=== PATIENT | male | born 1960 | race Caucasian/White ===

== ENCOUNTER 2020-08-04 08:14 | Outpatient (REF) | payer OTHER, SELFPAY ==
[2020-08-04 11:33] LABS: Estimated Average Glucose 126 mg/dL
[2020-08-04 12:19] LABS: Alanine Aminotransferase 14 U/L (0-40); Albumin Level 4.5 g/dL (3.5-5.0); Alkaline Phosphatase 48 U/L (39-117); Anion Gap 17 (12-20); Aspartate Amino Transferase 15 U/L (5-37); Bilirubin Total 0.7 mg/dL (0.0-1.0); Blood Urea Nitrogen 12 mg/dL (9-16); Calcium 9.1 mg/dL (8.4-10.2); Carbon Dioxide 26 mmol/L (22-29); Chloride 102 mmol/L (96-108); Cholesterol 164 mg/dL; Estimated Glomerular Filt Rate > 60; Glucose Fasting 94 mg/dL (60-99); HDL Cholesterol 49 mg/dL; LDL Cholesterol Calculated 100 mg/dl; Potassium 4.5 mmol/l (3.3-5.1); Sodium 140 mmol/L (135-145); Total Protein 7.3 g/dL (6.5-8.0); Triglycerides 76 mg/dL
== END 2020-08-04 08:15 | disposition home or self-care (01) ==
LOC: HO.MANLR 08:14
PROVIDERS: PCP Internal Medicine; Visit Provider Internal Medicine
DX: E11.9 Type 2 diabetes mellitus without complications (principal)
CPT/HCPCS: 80053; 80061; 83036

== ENCOUNTER 2020-12-01 08:15 | Outpatient (REF) | payer OTHER, SELFPAY ==
[2020-12-01 11:56] LABS: Hematocrit 48.7 % (42-52); Hemoglobin 15.9 g/dl (14.0-18.0); Mean Corpuscular HGB Conc 32.6 g/dl (31.0-36.0); Mean Corpuscular Hemoglobin 28.6 pg (27.0-33.0); Mean Corpuscular Volume 87.6 fL (80-98); Mean Platelet Volume 10.6 fL (9.4-12.4); Platelet Count 302 X10*3/uL (160-400); Red Blood Count 5.56 X10*6/uL (4.60-5.80); Red Cell Distribution Width 13.7 % (11.0-16.0); White Blood Count 11.6 X10*3/uL (4.8-10.8)
[2020-12-01 12:05] LABS: Estimated Average Glucose 108 mg/dL; Hemoglobin A1c % 5.4 %
[2020-12-01 12:47] LABS: Alanine Aminotransferase 11 U/L (0-40); Albumin Level 4.7 g/dL (3.5-5.0); Alkaline Phosphatase 57 U/L (39-117); Anion Gap 13 (12-20); Aspartate Amino Transferase 14 U/L (5-37); Bilirubin Total 0.5 mg/dL (0.0-1.0); Blood Urea Nitrogen 14 mg/dL (9-16); Calcium 10.1 mg/dL (8.4-10.2); Carbon Dioxide 32 mmol/L (22-29); Chloride 100 mmol/L (96-108); Estimated Glomerular Filt Rate > 60; Glucose Fasting 91 mg/dL (60-99); Potassium 4.8 mmol/L (3.3-5.1); Sodium 140 mmol/L (135-145); Total Protein 7.7 g/dL (6.5-8.0)
[2020-12-01 13:02] LABS: Prostate Specific Antigen 0.33 ng/mL (<0.05-4.0)
[2020-12-04 04:08] LABS: ~HepC Num1 0.14 S/CO (0.00-0.79); ~Hepatitis C Antibody Nonreactive (Nonreactive)
== END 2020-12-01 08:16 | disposition home or self-care (01) ==
LOC: HO.MANLDS 08:15
PROVIDERS: PCP Internal Medicine; Visit Provider Internal Medicine
DX: E11.9 Type 2 diabetes mellitus without complications (principal); I10 Essential (primary) hypertension; Z11.59 Encounter for screening for other viral diseases; Z12.5 Encounter for screening for malignant neoplasm of prostate
CPT/HCPCS: 36415; 80053; 83036; 84153; 85027; 86803

== ENCOUNTER 2021-02-27 13:58 | Outpatient (REF) | payer OTHER, SELFPAY ==
[2021-02-27 18:07] LABS: Estimated Average Glucose 117 mg/dL; Hemoglobin A1C 145.4185 umol/L; Hemoglobin A1c % 5.7 %
== END 2021-02-27 13:59 | disposition home or self-care (01) ==
LOC: HO.MANLDS 13:58
PROVIDERS: Visit Provider Internal Medicine
DX: E11.9 Type 2 diabetes mellitus without complications (principal)
CPT/HCPCS: 36415; 83036

== ENCOUNTER 2021-06-08 13:40 | Outpatient (REF) | payer OTHER, SELFPAY ==
[2021-06-08 18:54] LABS: Estimated Average Glucose 120 mg/dL; Hemoglobin A1c % 5.8 %
[2021-06-08 18:56] LABS: Alanine Aminotransferase 15 U/L (0-40); Albumin Level 4.5 g/dL (3.5-5.0); Alkaline Phosphatase 51 U/L (39-117); Anion Gap 14 (12-20); Aspartate Amino Transferase 17 U/L (5-37); Bilirubin Total 0.8 mg/dL (0.0-1.0); Blood Urea Nitrogen 12 mg/dL (9-16); Calcium 9.6 mg/dL (8.4-10.2); Carbon Dioxide 22 mmol/L (22-29); Chloride 104 mmol/L (96-108); Cholesterol 166 mg/dL; Estimated Glomerular Filt Rate > 60; Glucose Fasting 68 mg/dL (60-99); HDL Cholesterol 46 mg/dL; LDL Cholesterol Calculated 108 mg/dl; Sodium 136 mmol/L (135-145); Total Protein 7.3 g/dL (6.5-8.0); Triglycerides 62 mg/dL
== END 2021-06-08 13:41 | disposition home or self-care (01) ==
LOC: HO.MANLDS 13:40
PROVIDERS: Visit Provider Internal Medicine
DX: E11.9 Type 2 diabetes mellitus without complications (principal)
CPT/HCPCS: 36415; 80053; 80061; 83036

== ENCOUNTER 2021-08-15 11:15 | Outpatient (REF) | payer BC, SELFPAY ==
[2021-08-15 13:11] LABS: Estimated Average Glucose 126 mg/dL
== END 2021-08-15 11:16 | disposition home or self-care (01) ==
LOC: HO.MANLDS 11:15
PROVIDERS: PCP Internal Medicine; Visit Provider Internal Medicine
DX: E11.9 Type 2 diabetes mellitus without complications (principal)
CPT/HCPCS: 36415; 83036

== ENCOUNTER → 2021-10-17 10:10 | Outpatient (BNVA) | payer OTHER, SELFPAY | PROVIDERS: PCP Internal Medicine; Visit Provider Physician Assistant | DX: S30.0XXA Contusion of lower back and pelvis, initial encounter (principal); V85.4XXA Person injured while boarding or alighting from special construction vehicle, initial encounter | CPT/HCPCS: 99203 ==

== ENCOUNTER 2021-11-16 13:59 | Outpatient (REF) | payer BC, SELFPAY ==
[2021-11-16 18:14] LABS: Alanine Aminotransferase 12 U/L (0-40); Albumin Level 4.6 g/dL (3.5-5.0); Alkaline Phosphatase 54 U/L (39-117); Anion Gap 13 (12-20); Aspartate Amino Transferase 15 U/L (5-37); Bilirubin Total 0.4 mg/dL (0.0-1.0); Blood Urea Nitrogen 14 mg/dL (9-16); Carbon Dioxide 26 mmol/L (22-29); Chloride 101 mmol/L (96-108); Cholesterol 185 mg/dL; Estimated Glomerular Filt Rate > 60; Glucose Fasting 73 mg/dL (60-99); HDL Cholesterol 45 mg/dL; LDL Cholesterol Calculated 115 mg/dl; Potassium 4.1 mmol/L (3.3-5.1); Sodium 136 mmol/L (135-145); Total Protein 7.6 g/dL (6.5-8.0); Triglycerides 129 mg/dL
[2021-11-16 18:18] LABS: Estimated Average Glucose 137 mg/dL; Hemoglobin A1c % 6.4 %
== END 2021-11-16 14:00 | disposition home or self-care (01) ==
LOC: HO.MANLDS 13:59
PROVIDERS: PCP Internal Medicine; Visit Provider Internal Medicine
DX: E11.9 Type 2 diabetes mellitus without complications (principal)
CPT/HCPCS: 36415; 80053; 80061; 83036

== ENCOUNTER 2022-04-01 14:48 | Outpatient (REF) | payer BC, SELFPAY ==
[2022-04-01 17:52] LABS: Estimated Average Glucose 146 mg/dL; Hemoglobin A1c % 6.7 %
[2022-04-01 17:57] LABS: Alanine Aminotransferase 15 U/L (0-40); Albumin Level 4.7 g/dL (3.5-5.0); Alkaline Phosphatase 53 U/L (39-117); Anion Gap 13 (12-20); Aspartate Amino Transferase 13 U/L (5-37); Bilirubin Total 0.4 mg/dL (0.0-1.0); Blood Urea Nitrogen 14 mg/dL (9-16); Calcium 9.7 mg/dL (8.4-10.2); Carbon Dioxide 27 mmol/L (22-29); Chloride 103 mmol/L (96-108); Cholesterol 186 mg/dL; Estimated Glomerular Filt Rate > 60; Glucose Random 88 mg/dL (60-115); HDL Cholesterol 42 mg/dL; LDL Cholesterol Calculated 116 mg/dl; Sodium 139 mmol/L (135-145); Total Protein 7.6 g/dL (6.5-8.0); Triglycerides 143 mg/dL
[2022-04-01 18:01] LABS: Creatinine Urine 58.65 mg/dL; Microalbum/Creatinine Ratio Ur 78.4 ug/mg cr
== END 2022-04-01 14:49 | disposition home or self-care (01) ==
LOC: HO.MANLDS 14:48
PROVIDERS: Visit Provider Internal Medicine
DX: E11.9 Type 2 diabetes mellitus without complications (principal)
CPT/HCPCS: 36415; 80053; 80061; 82043; 83036

== ENCOUNTER 2022-07-03 14:27 | Outpatient (REF) | payer BC, SELFPAY ==
[2022-07-04 07:50] LABS: Estimated Average Glucose 148 mg/dL; Hemoglobin A1c % 6.8 %
== END 2022-07-03 14:28 | disposition home or self-care (01) ==
LOC: HO.MANLDS 14:27
PROVIDERS: Visit Provider Internal Medicine
DX: E11.9 Type 2 diabetes mellitus without complications (principal)
CPT/HCPCS: 36415; 83036

== ENCOUNTER 2022-11-25 10:24 | Outpatient (REF) | payer BC, SELFPAY ==
[2022-11-25 14:17] LABS: Estimated Average Glucose 160 mg/dL; Hemoglobin A1c % 7.2 %
[2022-11-25 14:28] LABS: Alanine Aminotransferase 12 U/L (0-40); Albumin Level 4.7 g/dL (3.5-5.0); Alkaline Phosphatase 56 U/L (39-117); Anion Gap 13 (12-20); Aspartate Amino Transferase 12 U/L (5-37); Bilirubin Total 0.6 mg/dL (0.0-1.0); Blood Urea Nitrogen 17 mg/dL (9-16); Carbon Dioxide 30 mmol/L (22-29); Chloride 101 mmol/L (96-108); Cholesterol 215 mg/dL; Estimated Glomerular Filt Rate > 60; Glucose Fasting 187 mg/dL (60-99); HDL Cholesterol 51 mg/dL; LDL Cholesterol Calculated 134 mg/dl; Sodium 139 mmol/L (135-145); Total Protein 7.9 g/dL (6.5-8.0); Triglycerides 154 mg/dL
[2022-11-27 12:44] LABS: Creatinine Urine 48.28 mg/dL; Microalbum/Creatinine Ratio Ur 289.9 ug/mg cr
== END 2022-11-25 10:25 | disposition home or self-care (01) ==
LOC: HO.MANLDS 10:24
PROVIDERS: Visit Provider Internal Medicine
DX: E11.9 Type 2 diabetes mellitus without complications (principal)
CPT/HCPCS: 36415; 80053; 80061; 82043; 83036

== ENCOUNTER 2023-02-14 14:39 | Outpatient (REF) | payer BC, SELFPAY ==
[2023-02-14 18:59] LABS: Estimated Average Glucose 131 mg/dL; Hemoglobin A1c % 6.2 %
[2023-02-14 19:00] LABS: Alanine Aminotransferase 14 U/L (0-40); Albumin Level 4.4 g/dL (3.5-5.0); Alkaline Phosphatase 45 U/L (39-117); Anion Gap 11 (12-20); Aspartate Amino Transferase 13 U/L (5-37); Bilirubin Total 0.7 mg/dL (0.0-1.0); Blood Urea Nitrogen 15 mg/dL (9-16); Calcium 9.9 mg/dL (8.4-10.2); Carbon Dioxide 26 mmol/L (22-29); Chloride 107 mmol/L (96-108); Cholesterol 160 mg/dL; Estimated Glomerular Filt Rate > 60; Glucose Random 76 mg/dL (60-115); HDL Cholesterol 44 mg/dL; LDL Cholesterol Calculated 99 mg/dl; Potassium 4.2 mmol/L (3.3-5.1); Sodium 140 mmol/L (135-145); Total Protein 7.3 g/dL (6.5-8.0); Triglycerides 86 mg/dL
== END 2023-02-14 14:40 | disposition home or self-care (01) ==
LOC: HO.MANLDS 14:39
PROVIDERS: Visit Provider Internal Medicine
DX: E11.9 Type 2 diabetes mellitus without complications (principal)
CPT/HCPCS: 36415; 80053; 80061; 83036

== ENCOUNTER 2023-05-26 15:22 | Outpatient (REF) | payer BC, SELFPAY ==
[2023-05-27 05:18] LABS: Estimated Average Glucose 114 mg/dL; Hemoglobin A1c % 5.6 % (<6.0)
== END 2023-05-26 15:23 | disposition home or self-care (01) ==
LOC: HO.MANLDS 15:22
PROVIDERS: Visit Provider Internal Medicine
DX: E11.9 Type 2 diabetes mellitus without complications (principal)
CPT/HCPCS: 36415; 83036

== ENCOUNTER 2023-09-24 14:47 | Outpatient (REF) | payer BC, SELFPAY ==
[2023-09-24 15:46] LABS: Estimated Average Glucose 114 mg/dL; Hemoglobin A1c % 5.6 % (<6.0)
== END 2023-09-24 14:48 | disposition home or self-care (01) ==
LOC: HO.LAB 14:47
PROVIDERS: PCP Internal Medicine; Visit Provider Internal Medicine
DX: E11.9 Type 2 diabetes mellitus without complications (principal)
CPT/HCPCS: 36415; 83036

== ENCOUNTER 2024-01-26 15:36 | Outpatient (REF) | payer BC, SELFPAY ==
[2024-01-26 17:47] LABS: Estimated Average Glucose 126 mg/dL
== END 2024-01-26 15:37 | disposition home or self-care (01) ==
LOC: HO.MANLDS 15:36
PROVIDERS: Visit Provider Internal Medicine
DX: E11.9 Type 2 diabetes mellitus without complications (principal)
CPT/HCPCS: 36415; 83036

== ENCOUNTER 2024-04-26 15:29 | Outpatient (REF) | payer BC, SELFPAY ==
[2024-04-26 18:37] LABS: Thyroid Stimulating Hormone 1.24 uIU/mL (0.32-4.0)
[2024-04-26 18:38] LABS: Vitamin B12 398 pg/mL (200-900)
[2024-04-27 09:38] LABS: Ceruloplasmin 25 mg/dL (14-30)
== END 2024-04-26 15:30 | disposition home or self-care (01) ==
LOC: HO.MANLDS 15:29
PROVIDERS: PCP Internal Medicine; Visit Provider Internal Medicine
DX: R25.1 Tremor, unspecified (principal)
CPT/HCPCS: 36415; 82390; 82607; 84443

== ENCOUNTER → 2024-10-19 09:11 | Outpatient (BNVA) | payer OTHER, SELFPAY | PROVIDERS: PCP Internal Medicine; Visit Provider Registered Nurse | DX: S20.211A Contusion of right front wall of thorax, initial encounter (principal); S40.011A Contusion of right shoulder, initial encounter; V84.4XXA Person injured while boarding or alighting from special agricultural vehicle, initial encounter | CPT/HCPCS: 71100; 73030; 99204 ==

== ENCOUNTER 2024-12-15 16:07 | Outpatient (REF) | payer OTHER, SELFPAY ==
--- OUTSIDE RECORDS SUMMARY | 2024-12-15 17:59 | XMS_ITS | Data Portability ---
Author Organization [facility] Address [address] [place] [address] Assessment Encounter Date Assessment Date Assessment LastModified by Organization Details LastModified Time 06/03/2023 06/03/2023 [id number] [place] [id number] ([employer]) [facility] MODERATE MUST MEET 2 OUT OF 3 ELEMENTS: PROBLEMS, DATA OR RISK ELEMENT 1: PROBLEMS ADDRESSED 1 OR MORE CHRONIC ILLNESS WITH EXACERBATION OR 2 OR MORE STABLE CHRONIC ILLNESSES OR 1 UNDIAGNOSED NEW PROBLEM OR 1 ACUTE ILLNESS W/SYMPTOMS OR 1 ACUTE COMPLICATED INJURY ELEMENT 2: DATA MUST MEET 1 OF 3 CATEGORIES CATEGORY 1: REVIEW OF PRIOR EXTERNAL NOTES, REVIEW OF RESULTS, ORDERING OF EACH TEST, ASSESSMENT REQUIRING INDEPENDENT HISTORIAN OR CATEGORY 2: INDEPENDENT INTERPRETATION OF TESTS BY ANOTHER PHYSICIAN OR SPECIALIST OR CATEGORY 3: DISCUSSION OF MGT OR TEST INTERPRETATION W/EXTERNAL PHYSICIAN OR SPECIALIST ELEMENT 3: RISK RISK OF COMPLICATIONS AND/OR MORBIDITY OR MORTALITY OF PATIENT MANAGEMENT PROVIDER MUST THOROUGHLY DOCUMENT EACH ELEMENT THAT IS COVERED Not available 06/03/2023 16:23:18 10/03/2023 10/03/2023 [id number] [place] [id number] ([employer]) [facility] MODERATE MUST MEET 2 OUT OF 3 ELEMENTS: PROBLEMS, DATA OR RISK ELEMENT 1: PROBLEMS ADDRESSED 1 OR MORE CHRONIC ILLNESS WITH EXACERBATION OR 2 OR MORE STABLE CHRONIC ILLNESSES OR 1 UNDIAGNOSED NEW PROBLEM OR 1 ACUTE ILLNESS W/SYMPTOMS OR 1 ACUTE COMPLICATED INJURY ELEMENT 2: DATA MUST MEET 1 OF 3 CATEGORIES CATEGORY 1: REVIEW OF PRIOR EXTERNAL NOTES, REVIEW OF RESULTS, ORDERING OF EACH TEST, ASSESSMENT REQUIRING INDEPENDENT HISTORIAN OR CATEGORY 2: INDEPENDENT INTERPRETATION OF TESTS BY ANOTHER PHYSICIAN OR SPECIALIST OR CATEGORY 3: DISCUSSION OF MGT OR TEST INTERPRETATION W/EXTERNAL PHYSICIAN OR SPECIALIST ELEMENT 3: RISK RISK OF COMPLICATIONS AND/OR MORBIDITY OR MORTALITY OF PATIENT MANAGEMENT PROVIDER MUST THOROUGHLY DOCUMENT EACH ELEMENT THAT IS COVERED Not available 10/03/2023 16:35:54 01/28/2024 01/28/2024 [id number] [place] [id number] ([employer]) [facility] MODERATE MUST MEET 2 OUT OF 3 ELEMENTS: PROBLEMS, DATA OR RISK ELEMENT 1: PROBLEMS ADDRESSED 1 OR MORE CHRONIC ILLNESS WITH EXACERBATION OR 2 OR MORE STABLE CHRONIC ILLNESSES OR 1 UNDIAGNOSED NEW PROBLEM OR 1 ACUTE ILLNESS W/SYMPTOMS OR 1 ACUTE COMPLICATED INJURY ELEMENT 2: DATA MUST MEET 1 OF 3 CATEGORIES CATEGORY 1: REVIEW OF PRIOR EXTERNAL NOTES, REVIEW OF RESULTS, ORDERING OF EACH TEST, ASSESSMENT REQUIRING INDEPENDENT HISTORIAN OR CATEGORY 2: INDEPENDENT INTERPRETATION OF TESTS BY ANOTHER PHYSICIAN OR SPECIALIST OR CATEGORY 3: DISCUSSION OF MGT OR TEST INTERPRETATION W/EXTERNAL PHYSICIAN OR SPECIALIST ELEMENT 3: RISK RISK OF COMPLICATIONS AND/OR MORBIDITY OR MORTALITY OF PATIENT MANAGEMENT PROVIDER MUST THOROUGHLY DOCUMENT EACH ELEMENT THAT IS COVERED [email or web address] Not available 01/28/2024 14:31:01 05/03/2024 05/03/2024 [id number] [place] [id number] ([employer]) [facility] MODERATE MUST MEET 2 OUT OF 3 ELEMENTS: PROBLEMS, DATA OR RISK ELEMENT 1: PROBLEMS ADDRESSED 1 OR MORE CHRONIC ILLNESS WITH EXACERBATION OR 2 OR MORE STABLE CHRONIC ILLNESSES OR 1 UNDIAGNOSED NEW PROBLEM OR 1 ACUTE ILLNESS W/SYMPTOMS OR 1 ACUTE COMPLICATED INJURY ELEMENT 2: DATA MUST MEET 1 OF 3 CATEGORIES CATEGORY 1: REVIEW OF PRIOR EXTERNAL NOTES, REVIEW OF RESULTS, ORDERING OF EACH TEST, ASSESSMENT REQUIRING INDEPENDENT HISTORIAN OR CATEGORY 2: INDEPENDENT INTERPRETATION OF TESTS BY ANOTHER PHYSICIAN OR SPECIALIST OR CATEGORY 3: DISCUSSION OF MGT OR TEST INTERPRETATION W/EXTERNAL PHYSICIAN OR SPECIALIST ELEMENT 3: RISK RISK OF COMPLICATIONS AND/OR MORBIDITY OR MORTALITY OF PATIENT MANAGEMENT PROVIDER MUST THOROUGHLY DOCUMENT EACH ELEMENT THAT IS COVERED Not available 05/03/2024 16:30:13 09/03/2024 09/03/2024 [id number] [place] [id number] ([employer]) [facility] MODERATE MUST MEET 2 OUT OF 3 ELEMENTS: PROBLEMS, DATA OR RISK ELEMENT 1: PROBLEMS ADDRESSED 1 OR MORE CHRONIC ILLNESS WITH EXACERBATION OR 2 OR MORE STABLE CHRONIC ILLNESSES OR 1 UNDIAGNOSED NEW PROBLEM OR 1 ACUTE ILLNESS W/SYMPTOMS OR 1 ACUTE COMPLICATED INJURY ELEMENT 2: DATA MUST MEET 1 OF 3 CATEGORIES CATEGORY 1: REVIEW OF PRIOR EXTERNAL NOTES, REVIEW OF RESULTS, ORDERING OF EACH TEST, ASSESSMENT REQUIRING INDEPENDENT HISTORIAN OR CATEGORY 2: INDEPENDENT INTERPRETATION OF TESTS BY ANOTHER PHYSICIAN OR SPECIALIST OR CATEGORY 3: DISCUSSION OF MGT OR TEST INTERPRETATION W/EXTERNAL PHYSICIAN OR SPECIALIST ELEMENT 3: RISK RISK OF COMPLICATIONS AND/OR MORBIDITY OR MORTALITY OF PATIENT MANAGEMENT PROVIDER MUST THOROUGHLY DOCUMENT EACH ELEMENT THAT IS COVERED [email or web address] Not available 09/03/2024 16:17:02 Plan of Treatment Reminders Order Date Submit Date Provider Last Modified By Organization Details Last Modified Time Details Appointments FOLLOW UP 2024 04:15P M DR COOPER Not available Not available Not available Lab HbA1c (hemoglob in A1c), blood 2023 024 [facility], [address] [place] [address], [id number], 08/25/2024 12:48:56 HbA1c (hemoglob in A1c), blood 2023 024 [email or web address] [facility], [address] [place] [address], [id number], 09/03/2024 16:10:46 HbA1c (hemoglob in A1c), blood 2023 024 [facility], [address] [place] [address], [id number], 01/27/2024 11:15:51 CMP, serum or plasma 2023 024 [facility], [address] [place] [address], [id number], 10/03/2023 16:38:25 lipid panel, blood 2023 024 [facility], [address] [place] [address], [id number], 10/03/2023 16:38:25 HbA1c (hemoglob in A1c), blood 2023 024 [email or web address], [address] [place] [address], [id number], 01/28/2024 14:25:27 Referral None recorded. Procedures None recorded. Surgeries None recorded. Imaging None recorded. Medication Orders propranol ol ER 60 mg capsule,2 4 hr,extend ed release 2023 024 [id number], [address] [place], [address], 03/12/2024 15:28:33 propranol ol ER 80 mg capsule,2 4 hr,extend ed release 2023 024 [email or web address] [facility], [address] [place], [address], 09/03/2024 15:40:08 Patient TargetsNo targets recorded. Patient Instructions Encounter Date Encounter Id Patient Instructions Last Modified By Organization Details Last Modified Time 09/03/2024 [id number] gout: care instructions [email or web address] Not available 09/03/2024 16:19:09 type 2 diabetes: care instructions Not available 09/03/2024 16:19:09 high blood pressure: care instructions Not available 09/03/2024 16:19:09 learning about high blood pressure Not available 09/03/2024 16:19:09 Reason for Referral None Reported. Results Created Date Observation Date Name Description Value Unit Range Abnormal Flag Note LastModifiedBy Organization Detail LastModifiedTime 10/19/19 25 10/19/2024 XR, shoul sagrario No observ ation record ed. [email or web address] [facility] (Medical Records) [address] [place] [address], [address], 10/19/2024 11:10:29 10/19/19 25 10/19/2024 XR, ribs, unila teral No observ ation record ed. [email or web address] [facility] (Medical Records) [address] [place], [address], 10/19/2024 11:14:36 Result Notes None recorded. Problems Name Problem SNOMED Code Status Onset Date Resolution Date Notes Provider Name and Address Organization Details Recorded Time Cellulitis 149425501 Active 2021 KATHERINE PALUMBO [address] [place], [address], [facility] 14:26:29 Insect bite - wound 573531894 Active 2021 KATHERINE PALUMBO [address] [place] [address], [phone], [facility] 2 14:26:44 Gout 28292907 Active 2021 KATHERINE PALUMBO [address] [place] [address], [phone], [facility] 2 11:34:27 Intention tremor 58385991 Active 2021 Darrion Cooper, DO [address] [place] [address], [phone], [facility] 2 16:18:15 Bilateral outstretch ed hands tremor 900363226 Active 2022 Darrion Cooper DO [address] [place] [address], [phone], [facility] 3 10:36:28 Type 2 diabetes mellitus without complicati on 515967995 Active 2023 Darrion Cooper DO [address] [place] [address], [phone], [facility] 4 16:35:47 Tremor 07243256 Active 2023 Darrion Cooper DO [address] [place] [address], [phone], [facility] 4 21:02:30 Dystonia 61594496 Active 2023 Darrion Cooper DO [address] [place] [address], [address], [facility] 4 16:32:12 Retinopath y due to diabetes mellitus 5284599 Active 2023 Darrion Cooper DO [address] [place] [address], [address], [facility] 4 16:14:04 Injury of ribs 733059399 Active 2024 Darrion Cooper DO [address] [place] [address], [address], [facility] 5 16:07:51 Essential hypertensi on 01264415 Active 2017 Chula Lealjaimee naveen [facility] 8 08:38:28 Obesity 251180937 Active 2017 [place] Kyra naveen [facility] 8 08:38:36 Problem Notes None recorded. Procedures Surgical History None recorded. Imaging Results Imaging Date Name Status LastModified by Organiz ation Details LastModified Time 10/19/2024 XR, shoulder completed [email or web address] [facility] (Medical Records) [address] [place], [address], 10/19/2024 11:10:29 10/19/2024 XR, ribs, unilateral completed [email or web address] [facility] (Medical Records) [address] [place], [address], 10/19/2024 11:14:36 Procedure Notes None recorded. Medical Equipment None Reported. Allergies No known drug allergies Medications Name Sig Start Date Stop Date Status Note LastModified by Organization Details LastModified Time metformin 500 mg tablet TAKE 1 TABLET TWICE A DAY active Not Available Not Available No t Available prednisone 10 mg tablet 40 mg x 3 days 30 mg x 3 days20 mg x 3 days10 mg x 3 days 04/12 completed Not Available Not Available Not Available hydrocodone 5 mg-acetamin ophen 325 mg tablet TAKE 1 TABLET BY MOUTH EVERY 6 HOURS NEEDED FOR 7 DAYS active Not Available Not Available No t Available FreeStyle Lancets 28 gauge USE DIRECTED THREE TIMES DAILY active Not Available Not Available No t Available propranolol ER 60 mg capsule,24 hr,extended release TAKE 1 CAPSULE DAILY active Not Available Not Available No t Available ketorolac 0.5 % eye drops INSTILL 1 DROP INTO RIGHT EYE 3 TIMES A DAY active Not Available Not Available No t Available pramipexole 0.5 mg tablet TAKE 1 TABLET 3 TIMES A DAY BY ORAL ROUTE NEEDED FOR 30 DAYS, FOR TREMOR. active Not Available Not Available No t Available prednisolon e acetate 1 % eye drops,suspe nsion INSTILL 1 DROP INTO RIGHT EYE FOUR TIMES A DAY SHAKE BOTTLE WELL. active Not Available Not Available No t Available lisinopril 10 mg tablet TAKE 1 TABLET DAILY active Not Available Not Available No t Available propranolol ER 80 mg capsule,24 hr,extended release TAKE 1 CAPSULE BY MOUTH EVERY DAY PT NEEDS TO OPT OUT OF MAIL ORDER 09/03 completed Not Available Not Available Not Available colchicine 0.6 mg tablet 1.2 mg PO x1, then 0.6 mg PO 1h later x1 repeat after 3 days if needed 04/12 completed Not Available Not Available Not Available propranolol 20 mg tablet TAKE 1 TABLET BY MOUTH EVERY DAY IN THE MORNING active Not Available Not Available No t Available doxycycline hyclate 100 mg tablet TAKE 1 TABLET BY MOUTH TWICE DAILY FOR 10 DAYS 04/12 completed Not Available Not Available Not Available metformin 10/30 completed Not Available Not Available Not Available BD Ultra-Fine Short Pen Needle 31 gauge x 5/16 USE DIRECTED ONCE DAILY active Not Available Not Available No t Available FreeStyle Lite Strips CHECK SUGARS THREE TIMES A DAY active Not Available Not Available No t Available Lantus Solostar U-100 Insulin 100 unit/mL (3 mL) subcutaneou s pen INJECT 26 UNITS SUBCUTANE OUSLY TWO TIMES A DAY active Not Available Not Available No t Available Novofine 32 32 gauge x 1/4 needle USE 1 NEEDLE ONCE DAILY DIRECTED active Not Available Not Available No t Available Victoza 2-Sunny Use 1.8 units daily. 10/30 completed Not Available Not Available Not Available Victoza 3-Sunny 0.6 mg/0.1 mL (18 mg/3 mL) subcutaneou s pen injector 12/05 completed Not Available Not Available Not Available Ozempic 0.25 mg or 0.5 mg (2 mg/1.5 mL) subcutaneou s pen injector Inject 0.5 mg every week by subcutane ous route for 30 days. 06/03 completed Not Available Not Available Not Available Ozempic 0.25 mg or 0.5 mg (2 mg/3 mL) subcutaneou s pen injector INJECT 0.5 MG SUBCUTANE OUSLY EVERY WEEK 2023 active Not Available Not Available Not Avai lable Vitals Date Recorded Body height Body mass index (BMI) Body weight Heart rate Oxygen saturation Oxygen saturation in Arterial blood by Pulse oximetry Systolic blood pressure Diastolic blood pressure Provider Name and Address Organization Details Last Updated DateTime 3 167.64 cm 33.2 kg/m2 99472.3 1 g 83 /min 95 % 95 % 130 mm[Hg] 70 mm[Hg] Rashmi Danielult [facility] 3 16:07:49 Date Recorded Body height Heart rate Oxygen saturation Oxygen saturation in Arterial blood by Pulse oximetry Systolic blood pressure Diastolic blood pressure Provider Name and Address Organization Details Last Updated DateTime 4 167.64 cm 90 /min 95 % 95 % 124 mm[Hg] 60 mm[Hg] Emilia Anthony [facility] 4 16:17:08 Date Recorded Body mass index (BMI) Body weight Provider Name and Address Organization Details Last Updated DateTime 10/03/2023 31.6 kg/m2 97315.1 g Darrion Cooper, [address], [place], [address], [facility] 10/03/2023 16:30:12 Date Recorded Body height Body mass index (BMI) Body weight Heart rate Respiratory rate Oxygen saturation Oxygen saturation in Arterial blood by Pulse oximetry Body temperature Systolic blood pressure Diastolic blood pressure Provider Name and Address Organization Details Last Updated DateTime 4 167.64 cm 33.4 kg/m2 77265.6 2 g 64 /min 18 /min 97 % 97 % 97.3 [degF] 120 mm[Hg] 74 mm[Hg] Faisal Stone [facility] Internal [facility] 4 14:09:41 Date Recorded Body height Body mass index (BMI) Body weight Heart rate Oxygen saturation Oxygen saturation in Arterial blood by Pulse oximetry Systolic blood pressure Diastolic blood pressure Provider Name and Address Organization Details Last Updated DateTime 4 167.64 cm 31.7 kg/m2 57662.9 g 76 /min 94 % 94 % 132 mm[Hg] 72 mm[Hg] Faisal Stone [facility] 4 16:08:41 Date Recorded Body height Body mass index (BMI) Body weight Heart rate Oxygen saturation Oxygen saturation in Arterial blood by Pulse oximetry Systolic blood pressure Diastolic blood pressure Provider Name and Address Organization Details Last Updated DateTime 4 167.64 cm 33.2 kg/m2 02193.0 3 g 52 /min 98 % 98 % 128 mm[Hg] 86 mm[Hg] Faisalgale Stone [facility] 4 15:41:39 Social History Question Answer Notes LastModified by Organizat ion Details LastModified Time Tobacco Smoking Status Current Every Day [facility] 16:56:17 What Was The Date Of Your Most Recent Tobacco Screening? 09/03/2024 [email or web address] Information not available 09/03/2024 How Much Tobacco Do You Smoke? 2 PPD [email or web address] Information not available 11/08/2019 Sex: Unknown Functional Status None recorded. Mental Status None recorded. Family History Nothing Reported. Medical History No medical history recorded. Immunizations Vaccine Type Date Status Note Provider Nam e and Address Organization Details Recorded Time COVID-19, mRNA, LNP-S, PF, 30 mcg/0.3 mL dose 11/25/2020 completed Shannon hodge [facility] 03/06/2021 09:51:58 COVID-19, mRNA, LNP-S, PF, 30 mcg/0.3 mL dose 12/16/2020 completed Shannon hodge [facility] 03/06/2021 09:52:02 Past Encounters Encounter ID Performer Location Encounter Start Date Encounter Closed Date Diagnosis/Indication Diagnosis SNOMED-CT Code Diagnosis ICD10 Code Diagnosis Note [id number] Darrion Cooper [facility] [address] [place] [address] 01/26/2018 16:07:15 01/26/2018 17:12:15 Type 2 diabetes mellitus 87690571 E11.9 [id number] Darrion Cooper [facility] [address] [place] [address] 10/30/2018 14:46:46 10/30/2018 15:50:43 Type 2 diabetes mellitus 02409819 E11.9 a1c is 11.0 is not compliant does not appear worried or motivated despite my warnings He DOES understand that he is at great risk for stroke and cardiac disease and but tonia and loyda subject note he has been out for the last 6 months but didnt bother to call or let me know Essential hypertension 15837549 I10 bp is stable with no issues Obesity 656699065 E66.9 uninterest ed Tobacco de pendence syndrome 12665800 F17.200 no interest in quitting despite my warnings Darrion Cooper [facility] [address] [facility] [address] [address] 02/05/2019 14:00:20 02/05/2019 14:30:45 Type 2 diabetes mellitus 80711594 E11.9 a1c is now 6.1 unbelievea ble was 11 a1c lost 30+ lbs Essential hypertension 19609290 I10 bp is stable with no issues Obesity 416430284 E66.9 has lost 30+ lbs and is doing well [id number] Darrion Cooper [facility] [address] [facility],[place] [address] 11/08/2019 16:13:53 11/08/2019 16:43:25 Type 2 diabetes mellitus 67271560 E11.9 a1c is now 5.6 unbelievea ble was 6.4 a1c lost 30+ lbs Essential hypertension 80752814 I10 bp is stable with no issues [id number] Darrion Cooper DO [facility] [address] [facility],[place] [address] 04/04/2020 15:18:17 04/04/2020 16:01:02 Type 2 diabetes mellitus 99871986 E11.9 a1c is now 5.6 Weight is stable at 206 Microalbum in is dropping now at 50 was 78 here and is now doing ok overall stable on the victoza but will be switching off her endocrinol ogist due to skilled nursing Essential hypertension 54035636 I10 bp is stable with no issues will cont the lisinopril Obesity 968655114 E66.9 has lost 30+ lbs and is doing well [id number] Darrion Cooper [facility] [address] [facility] [place] [address] 08/08/2020 16:03:09 08/08/2020 16:47:50 Type 2 diabetes mellitus 97498060 E11.9 a1c is now 6.0 was 5.6 but he has been off the victoza for 2 mo as his endocrinol ogist left the practice Weight is stable up to 215 Microalbum in is dropping now at 50 was 78 here and is now doing ok overall stable on the victoza but we will have to take over the victoza prescripti ons Essential hypertension 85309830 I10 bp is stable with no issues will cont the lisinopril Hepatitis C screening 41 2284860 Z11.59 will check next lab [id number] Darrion Cooper [facility] [address] [facility],[place] [address] 12/08/2020 15:45:49 12/11/2020 09:51:46 Type 2 diabetes mellitus 15847609 E11.9 doing great!!!!! ! we will lower the metfromin to 1 bid a1c is now 5.4 and was 6.0 was 5.6 but he has been off the victoza for 2 mo as his endocrinol ogist Weight is stable down to 210 Microalbum in is dropping now at 50 was 78 here and is now doing ok overall stable on the victoza but we will have to take over the victoza prescripti ons Essential hypertension 48916012 I10 bp is stable with no issues will cont the lisinopril [id number] Darrion Cooper [facility] [address] [facility],[place] [address] 03/09/2021 16:01:30 03/12/2021 11:22:10 Type 2 diabetes mellitus 42574757 E11.9 doing great!!!!! ! we will lower the metfromin to 1 bid a1c is now 5.7 and was 5.4 and was 6.0 was 5.6 but he has been off the victoza for 2 mo as his endocrinol ogist Weight is stable down to 210 Microalbum in is dropping now at 50 was 78 here and is now doing ok overall stable on the victoza but we will have to take over the victoza prescripti ons Essential hypertension 54560036 I10 bp is stable with no issues will cont the lisinopril [id number] Darrion Cooper DO [facility] [address] [facility], [place] [address] 08/27/2021 08:54:01 08/27/2021 16:23:02 Essential hypertension 59553050 I10 bp is stable with no issues will cont the lisinopril Obesity 759050087 E66.9 has kept off the 30+ lbs and is doing well Type 2 dilip betes mellitus 81115426 E11.9 doing great!!!!! ! we will lower the metfromin to 1 bid a1c is now 6.0 was 5.8 and 5.6 5.7 and was 5.4 and was 6.0 was 5.6 but he has been off the victoza for 2 mo as his endocrinol ogist Weight is stable down Microalbum in is dropping here and is now doing ok overall stable on the victoza but we will have to take over the victoza prescripti ons [id number] Darrion Cooper DO [facility] [address] [facility] [place] [address] 12/05/2021 15:29:49 12/05/2021 16:34:56 Type 2 diabetes mellitus 22549215 E11.9 doing great!!!!! ! still at 6.4 despitie the winter time not working we will lower the metfromin to 1 bid Lantus 26 bidhome gluose readings all less than 130Weight is stable down Microalbum in is dropping here and is now doing ok overall stable on the victoza but we will have to take over the victoza prescripti ons Essential hypertension 19206788 I10 bp is stable with no issues will cont the lisinopril [id number] KATHERINE PALUMBO [facility] [address] [facility], [place] [address] 02/18/2022 13:52:36 02/19/2022 08:45:09 Insect bite - wound 429685245 T14.8XXA told to monitor his sugars on the pred closely Cellulitis 692988377 L03 .90 will start on abx and pred [id number] Darrion Cooper DO [facility] [address] [facility],[place] [address] 04/12/2022 14:55:56 04/12/2022 16:18:46 Essential hypertension 98014780 I10 bp is stable with no issues will cont the lisinopril Type 2 dilip betes mellitus 21920874 E11.9 doing great!!!!! ! still at 6.4 despite the winter time not working we will lower the metformin to 1 bid Lantus 26 bidhome glucose readings all less than 130Weight is stable down Microalbum in is dropping here and is now doing ok overall stable on the victoza but we will have to take over the victoza prescripti ons Gout 33929382 M10.9 currently stable but certainly residual damage to the wrist joint [id number] Darrion Cooper DO [facility] [address] [facility] [address] 07/16/2022 15:45:17 07/16/2022 16:37:37 Type 2 diabetes mellitus 28181175 E11.9 doing great!!!!! ! still at 6.4 despite the winter time not working we will lower the metformin to 1 bid Lantus 26 bidhome glucose readings all less than 130Weight is stable down Microalbum in is dropping here and is now doing ok overall stable on the victoza but we will have to take over the victoza prescripti ons Essential hypertension 08116844 I10 bp is stable with no issues will cont the lisinopril Active or passive immunization 117408388 Z23 patient advised he is due for tdap & shingles Intention tremor 9026174 6 G25.2 mild but has started to notice told him if it gets worse we will [place] l [id number] Darrion Cooper DO [facility] Internal Medicine [address] [facility] [place] [address] 12/10/2022 15:47:57 12/11/2022 08:12:31 Type 2 diabetes mellitus 64225262 E11.9 doing worse as his a1c is up to 7.2 was 6,8 in fall Weight is stable down Microalbum in is dropping here and is now doing a little worsewe will try to get ozempic Essential hypertension [id number] I10 bp is stable with no issues will cont the lisinopril [id number] Darrion Cooper [facility] [address] [facility],[place] [address] 06/03/2023 16:01:17 06/03/2023 16:27:56 Essential hypertension [id number] I10 bp is stable with no issues will cont the lisinopril Type 2 dilip betes mellitus 93525520 E11.9 cont to do great with 5.6 despite occ diet indiscreti on Weight is stable down Microalbum in is dropping [id number] Darrion Cooper [facility] [address] [facility] [address] 10/03/2023 15:48:19 10/03/2023 16:40:57 Type 2 diabetes mellitus without complication 778529491 E11.9 doing great and is eating good and staying ok \will decrease dose to once a day as a1c is 5.6 Essential hypertension 52917977 I10 bp is stable with no issues will cont the lisinopril [id number] Darrion Cooper [facility] [address] [facility],[place] [address] 01/28/2024 13:53:07 01/28/2024 16:36:41 Type 2 diabetes mellitus without complication 965084146 E11.9 doing great and is eating good and staying ok \a1c is 6 and doing good thru the winter Depression screening 171 951622 Z13.31 Negative Screening Essential hypertension 43765214 I10 bp is stable with no issuesbut will increase the propranolo l to 80 Intention tremor 9262706 6 G25.2 will need to increase the dose as his propranolo l 60 mgdose is not strong enough Gout 69490504 M10.9 currently stable but certainly residual damage to the wrist joint [id number] Darrion Cooper [facility] [address] [facility] [place] [address] 05/03/2024 15:44:20 05/03/2024 16:46:30 Bilateral outstretched hands tremor [id number] R25.1 Essential hypertension 06086539 I10 bp is stable with no issuesbut will increase the propranolo l to 60 for a week then stop will see pt in a couple weeks to eval the bp Type 2 dilip betes mellitus without complication 219803508 E11.9 waiting for new a1c Depression screening 171 127172 Z13.31 Negative Screening Dystonia 16846170 G24.9 will stop the pramipexol e now and then wean off propranolo l and rechk in a couple weeks [id number] Darrion Cooper DO [facility] Internal [facility] [address] [facility] [address],[place] [address] 09/03/2024 15:31:12 09/03/2024 16:29:00 Essential hypertension 28999881 I10 bp is stable with no issuesbut will increase the propranolo l to 60 for a week then stop will see pt in a couple weeks to eval the bp Type 2 dilip betes mellitus without complication 160726158 E11.9 a1c is still good 6.7 Intention tremor 7552130 6 G25.2 no better we need neuro inpu Gout 21935937 M10.9 currently stable but certainly residual damage to the wrist joint 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 severe OD Health Concerns Section Related Observation LastModified by Organization Detai ls LastModified Time None Recorded Concern Status LastModified by Organization Details LastModified Time None Recorded Advance Directives Directive None Recorded Payers Encounter Date Sequence Insurance Name Policy Number Policy Gutiérrez Covered Member ID Gutiérrez Member ID Guarantor Name 06/03/2023 1 [place] [facility] [id number] Fuentes Viveros [id number] Fuentes Viveros 10/03/2023 1 [place] [facility] [id number] Fuentes Viveros [id number] Fuentes Talbotlois 01/28/2024 1 [place] [facility] [id number] Fuentes Viveros [id number] Fuentes Talbotlois 05/03/2024 1 [place] [facility] [id number] Fuentes Viveros [id number] Fuentes Viveros 09/03/2024 1 [facility] [facility] [id number] Fuentes Viveros [id number] Fuentes Viveros Notes Date Note Type Note Provider Name and Address Organization Details Recorded Time 3 text/htm l Care Management - DiabetesReported bypatient.Prognosis:expe cted outcome: no change; prognosis: good Self Care:seeing eye doctor yearly for dilated eye exam; checking feet regularly; no side effects from medications; hemoglobin A1C goal: <6.5; hemoglobin A1C levels have been: <7;side effects from medications: Associated Symptoms:symptoms are usually well controlled; no fatigue; no dizziness; no excessive sweating; no headaches; no confusion; no increased thirst; no increased appetite; no increased urination; no blurred vision; no numbness of feet; no calluses on feet here for dm eval and has been a bit off with diet gluco reading in 130 but a1c is 5.6 last weeknoted he injured his left shoulder at work after falling on it has slowly gotten better happended >1 month Darrion Cooper, DO [address] [facility], [place], [address], [facility] 06/03/2023 16:25:18 4 text/htm l Care Management - DiabetesReported bypatient.Self Care:seeing eye doctor yearly for dilated eye exam; checking feet regularly; normal range of home blood sugars (in the low 100s); no side effects from medications Associated Symptoms:symptoms are usually well controlled; no fatigue; no dizziness; no excessive sweating; no headaches; no confusion; no increased thirst; no increased appetite; no increased urination; no blurred vision; no numbness of feet; no calluses on feetCare Management - HypertensionReported bypatient.Self Care:not under emotional stress Severity:symptoms are improving; does not interfere with daily activities Associated Symptoms:no dizziness; no lightheadedness; no chest pain; no shortness of breath; no palpitations; no edema; no calf muscle cramps; no blurred vision; no confusion; no headaches; no fatigue feels ok otherwise except for the left shoulder fell on this 3 mo ago and relates that this has been painful with cerrtain movements Darrion Cooper, DO [address] [place], [address], [facility] 10/03/2023 16:37:38 4 text/htm l here for rechk of his DM doing ok and his sugars are awesomerelates seen by neurologist and was told to stop pramipexole and propranolol doesnt feel it is Parkinsons ds Darrion Cooper, DO [address] [place], [address], [facility] 05/03/2024 16:32:52 4 text/htm l Care Management - DiabetesReported bypatient.Self Care:seeing eye doctor yearly for dilated eye exam; checking feet regularly; normal range of home blood sugars (in the low 100s); no side effects from medications Associated Symptoms:symptoms are usually well controlled; no fatigue; no dizziness; no excessive sweating; no headaches; no confusion; no increased thirst; no increased appetite; no increased urination; no blurred vision; no numbness of feet; no calluses on feetCare Management - HypertensionReported bypatient.Self Care:not under emotional stress Severity:symptoms are improving; does not interfere with daily activities Associated Symptoms:no dizziness; no lightheadedness; no chest pain; no shortness of breath; no palpitations; no edema; no calf muscle cramps; no blurred vision; no confusion; no headaches; no fatigue here for rechk and is doing okrelates that he feels well and glucose readings are lowstates vision is not goodgets eye inj to the OD by optho noted bad retinopathy Darrion Cooper DO [address] [place], [address], [facility] 09/03/2024 16:20:06
[2024-12-15 18:33] LABS: Estimated Average Glucose 157 mg/dL; Hemoglobin A1C 234.1254 umol/L; Hemoglobin A1c % 7.1 % (<6.0); Total Hemoglobin (HGBA1C) 4371.3909 umol/L
== END 2024-12-15 16:08 | disposition home or self-care (01) ==
LOC: HO.MANLDS 16:07
PROVIDERS: Visit Provider Internal Medicine
DX: E11.9 Type 2 diabetes mellitus without complications (principal)
CPT/HCPCS: 36415; 83036

== ENCOUNTER → 2025-02-14 08:34 | Outpatient (BNVA) | payer OTHER, SELFPAY | PROVIDERS: PCP Internal Medicine; Visit Provider Physician Assistant Medical | DX: S40.011D Contusion of right shoulder, subsequent encounter (principal); V84 Occupant of special vehicle mainly used in agriculture injured in transport accident; M25.811 Other specified joint disorders, right shoulder; M50.123 Cervical disc disorder at C6-C7 level with radiculopathy | CPT/HCPCS: 99213 ==

== ENCOUNTER → 2025-02-21 10:06 | Outpatient (BNVA) | payer OTHER, SELFPAY | PROVIDERS: PCP Internal Medicine; Visit Provider Physician Assistant Medical | DX: S40.011D Contusion of right shoulder, subsequent encounter (principal); V84 Occupant of special vehicle mainly used in agriculture injured in transport accident; M25.811 Other specified joint disorders, right shoulder; M50.023 Cervical disc disorder at C6-C7 level with myelopathy | CPT/HCPCS: 99213 ==

== ENCOUNTER → 2025-03-14 14:46 | Outpatient (BNVA) | payer OTHER, SELFPAY | PROVIDERS: PCP Internal Medicine; Visit Provider Physician Assistant Medical | DX: S40.011D Contusion of right shoulder, subsequent encounter (principal); V84 Occupant of special vehicle mainly used in agriculture injured in transport accident; M75.41 Impingement syndrome of right shoulder; M50.923 Unspecified cervical disc disorder at C6-C7 level | CPT/HCPCS: 99213 ==

== ENCOUNTER 2025-03-29 16:00 | Outpatient (RCR) | payer OTHER, BC, SELFPAY ==
--- NOTE | 2025-02-23 16:51 | MHC.PT.EP ---
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 Pt is deemed an appropriate candidate to receive skilled PT services to address their physical impairments in order to improve their functional ability. Frequency and Duration: The patient will be seen 1 x/ wk x 5 wks. Short Term Goals: initiate home program. Improve baseline apin to < 3/10. Mcc Goals: I with home program. Pt will improve SPADI outcome by at least 13 points. Pt will be able to place objects on high shelf, initial: unable. Pt will be able to dress pullovers without difficulty. Treatment Plan: Modalities to reduce pain, spasms and effusion. Manual therapy to restore motion and function. Therapeutic exercise to improve strength and flexibility. Neuromuscular re-education for posture and balance. Therapeutic activities to return to functional activities of daily living. Electronically signed by: Colin Nixon PT. Please sign and return to therapist. Thank you for your referral.
--- NOTE | 2025-03-29 17:33 | MHC.PT.DC ---
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 Date of Surgery: Date of Evaluation: 02/21/25 Date of Discharge: 03/29/25 Treatments to Date: 9 Cancellations to Date: No Shows to Date: Discharge Status: Achieved Goals Improved Function Independent with HEP Discharge Summary: Fuentes has been an active participant in his therapy he has met his reasonable therapeutic goals, is now managed of his pain and in agreement with DC. Note: Pt does persist with weakness and dysfunction with R shoulder abduction though reports he can likely live with it since the pain is now managed and flexion activities are no longer painful. Electronically signed by: Colin Nixon PT. Please sign and return to therapist. Thank you for your referral.
== END 2025-03-29 17:34 | disposition home or self-care (01) ==
LOC: HO.PT 16:00
PROVIDERS: PCP Internal Medicine; Visit Provider Physician Assistant Medical
DX: M50.123 Cervical disc disorder at C6-C7 level with radiculopathy (principal); S40.011D Contusion of right shoulder, subsequent encounter; M25.811 Other specified joint disorders, right shoulder
CPT/HCPCS: 97110; 97161; 97530; 97535

== ENCOUNTER → 2025-04-12 15:17 | Outpatient (BNVA) | payer OTHER, SELFPAY | PROVIDERS: PCP Internal Medicine; Visit Provider Physician Assistant Medical | DX: S40.011D Contusion of right shoulder, subsequent encounter (principal); V84 Occupant of special vehicle mainly used in agriculture injured in transport accident; M25.811 Other specified joint disorders, right shoulder; M50.123 Cervical disc disorder at C6-C7 level with radiculopathy; Z02.79 Encounter for issue of other medical certificate | CPT/HCPCS: 99213 ==

== ENCOUNTER 2025-05-27 14:29 | Outpatient (REF) | payer BC, SELFPAY ==
--- OUTSIDE RECORDS SUMMARY | 2025-05-27 17:18 | XMS_ITS | Clinical Summary ---
Author Organization [facility] Address [address] [address] Phone Care Team Providers Care Gang Supervisor Pipe Lines Name Role Phone Darrion Welch DO Unavailable Darrion Welch DO Primary Care Provider [phone] Social History Tobacco Use Types Packs/Day Years Used Date Smoking Tobacco: Never Assessed Education Answer Date Recorded Are you interested in more education? Not on cinthia e 12/21/2023 Are you concerned about learning? Not on file 12/21/2023 No 12/21/2023 No 12/21/2023 Digital Access Answer Date Recorded No 12/21/2023 No 12/21/2023 Reliable internet access at home? Not on file 12/21/2023 Device with a working camera? Not on file Sex and Gender Information Value Date Recorded Sex Assigned at Not on file Legal Sex Male 9:48 PM EDT Gender Identity Not on file Sexual Orientation Not on file Plan of Treatment Health Maintenance Due Date Last Done Comments Adult Td,Tdap Booster 1960 BLOOD PRESSURE 1960 DEPRESSION SCREENING 1972 SMOKING Hx and SMOKELESS TOBACCO SCREENING 1973 HEPATITIS C SCREENING 1978 HIV ONE-TIME SCREENING (18-65 YEARS) 1978 PNEUMOCOCCAL VACCINES (50+ years) (1 of 2 - PCV) 1979 COLOGUARD 2005 COLONOSCOPY 2005 COLORECTAL CANCER SCREENING 2005 FIT TEST 2005 FOBT 2005 SIGMOIDOSCOPY 2005 VIRTUAL COLONOSCOPY 2005 ZOSTER VACCINES (1 of 2) 2010 LIPID PANEL 02/15/2024 02/14/2023, 06/0 10/2022, 11/25/2022, Additional history exists COVID-19 VACCINE (4 - 2024-25 season) 2024 07/23/2021, 12/16/2020, 11/25/2020 DIABETIC EYE EXAM 05/28/2024 URINE MICROALBUMIN/CREATININE RATIO 05/28/2024 11/25/2022, 11/25/2022, 04/01/2022 HEMOGLOBIN A1C 02/23/2025 08/25/2024, 05/16, 01/26/2024, Additional history exists RSV VACCINE (1 - 1-dose 75+ series) 2035 HEPATITIS A VACCINES Aged Out No long er eligible based on patient's age to complete this topic HIB VACCINES Aged Out No longer eligi ble based on patient's age to complete this topic MENINGOCOCCAL VACCINES (ACWY) Aged Out No longer eligible based on patient's age to complete this topic MENINGOCOCCAL VACCINES (B) Aged Out N o longer eligible based on patient's age to complete this topic Medical Devices Not on file Procedures Procedure Name Priority Date/Time Associated Diagnosis Comments HEMOGLOBIN A1C Routine 08/25/2024 7:51 AM EST Diabetes mellitus of other type without complication, unspecified whether fdc insulin use from Last 3 Months or Most Recently Relevant to Health Maintenance Results * (ABNORMAL) Hemoglobin A1c (08/25/2024 7:51 AM EST) HEMOGLOBIN A1C 6.7(H) 4.3 - 5.8 % [facility] Blood 08/25/2024 7:51 AM EST 08/25/2024 7:53 AM EST us Darrion A Bigda DO LAB BLOOD ORDERABLES Final Resul t [facility] [address] [place] [address] from Last 3 Months or Most Recently Relevant to Health Maintenance Insurance [facility] [place] [address] [address] Care Teams Gang Supervisor Pipe Lines Relationship Specialty Start Date End Date Darrion Welch DO [address] [place] [address] [email or web address] PCP - General Internal Medicine 05/28/24 Darrion Welch DO [address] [place] [address] [email or web address] Insurance Assigned Provider 12/20/23 Additional Source Comments The information contained in this document represents components of the legal health record. It is not the complete legal health record[facility]
[2025-05-27 18:23] LABS: Hemoglobin A1C 229.5029 umol/L; Total Hemoglobin (HGBA1C) 3905.8841 umol/L
== END 2025-05-27 14:30 | disposition home or self-care (01) ==
LOC: HO.MANLDS 14:29
PROVIDERS: Visit Provider Internal Medicine
DX: E11.9 Type 2 diabetes mellitus without complications (principal)
CPT/HCPCS: 36415; 83036